=== PATIENT | female | born 1980 | race Caucasian/White ===

== ENCOUNTER 2022-01-11 13:35 | Inpatient (IN) | payer OTHER ==
[~2022-01-11] VITALS: Ht 157.5 cm; Wt 91.4 kg
[2022-01-13] VITALS (16 sets, daily range): BP systolic 114–151; BP diastolic 55–100; PULSE 57–184; TEMP 97.6–98.7
--- NOTE | 2022-01-13 14:00 | NUR ---
1400 - PATIENT AMBULATORY TO ROOM 210 ACCOMPANIED BY SPOUSE. PATIENT ORIENTED TO ROOM. PATIENT CHANGES INTO GOWN. PLAN OF CARE REVIEWED. QUESTIONS ANSWERED. 1415 - PATIENT ON MONITOR. 1430 - IV STARTED. LABS DRAWN ORDERED. LR INITIATED. 1445 - CONSENTS REVIEWED AND SIGNED. CARE ONGOING.
[2022-01-13] MEDS ORDERED: PRENATAL TABLET PO (15:10)
[2022-01-13] MEDS ORDERED: NATURAL IRON65 MG (15:11)
[2022-01-13] MEDS ORDERED: NORMODYNE100 MG PO (15:11)
[2022-01-13 15:13] LABS: BASO # 0.1 K/mm3 (0.0-0.2); BASO % 0.6 % (0.0-2.0); EOS # 0.2 K/mm3 (0.0-0.7); EOS % 1.6 % (0.0-4.0); GRAN # 8.3 K/mm3 (1.4-6.5); GRAN % 73.1 % (42.2-75.2); LYMPH # 1.9 K/mm3 (1.2-3.4); LYMPH % 16.5 % (20.0-51.0); MEAN CELL VOLUME 81 fl (80.0-100.0); MEAN CORPUSCULAR HEMOGLOBIN 25 pg (27-31); MEAN CORPUSCULAR HGB CONC 31 g/dl (33.0-37.0); MEAN PLATELET VOLUME 12.3 fl (7.4-10.4); MONO # 0.8 K/mm3 (0.1-0.6); MONO % 7.4 % (1.7-9.3); PLATELET COUNT 370 K/mm3 (130-400); REDCELL DISTRIBUTION WIDTH-CV 18.6 % (11.5-14.5)
[2022-01-13 15:16] LABS: HEMATOCRIT 32.5 % (37.0-47.0)
[2022-01-14 00:20] VITALS: BP 168/87; PULSE 82; TEMP 97.4
[2022-01-14 03:20] VITALS: BP 161/89; PULSE 83; TEMP 98.1
--- NOTE | 2022-01-14 05:45 | NUR ---
GEOFF MENESES AT THIS TIME. PT UP TO BATHROOM, PERICARE PROVIDED, PERIPAD AND MESH UNDERWEAR APPLIED. CLEAN GOWN ON, PT ASSISTED BACK TO BED. LAB IN ROOM FOR REPEAT LABWORK.
[2022-01-14 06:18] LABS: MEAN CELL VOLUME 83 fl (80.0-100.0); MEAN CORPUSCULAR HGB CONC 30 g/dl (33.0-37.0); MEAN PLATELET VOLUME 12.4 fl (7.4-10.4); PLATELET COUNT 385 K/mm3 (130-400); RED BLOOD COUNT 3.78 M/mm3 (4.10-5.30); REDCELL DISTRIBUTION WIDTH-CV 18.5 % (11.5-14.5)
[2022-01-14 06:28] LABS: HEMATOCRIT 31.5 % (37.0-47.0); HEMOGLOBIN 9.5 g/dl (12.5-16.0); MEAN CORPUSCULAR HEMOGLOBIN 25 pg (27-31)
[2022-01-14 06:36] LABS: ALBUMIN 2.4 gm/dL (3.5-5.0); BILIRUBIN,TOTAL 0.1 mg/dL (0.2-1.2); CALCIUM 9.8 mg/dL (8.4-10.2); CREATININE, serum 0.88 mg/dL (0.57-1.11); POTASSIUM 4.5 mmol/L (3.5-4.5); TOTAL PROTEIN 6.6 gm/dL (6.2-8.1)
[2022-01-14 08:15] VITALS: BP 132/109; PULSE 86; TEMP 97.9
--- NOTE | 2022-01-14 09:52 | NUR ---
Initial visit; Parents thanked [employer] for offering congratulations and God's blessings for the of their son. [employer]cher thanked family for choosing [place].
[2022-01-14 12:30] VITALS: BP 127/73; PULSE 84; TEMP 98
[2022-01-14 17:15] VITALS: BP 139/90; PULSE 73; TEMP 97.8
[2022-01-14 20:00] VITALS: BP 167/105; PULSE 76; TEMP 97.6
[2022-01-15 00:40] VITALS: BP 108/63
[2022-01-15] MEDS ORDERED: PERCOCET 325 MG1 TA2 PO (08:05)
[2022-01-15] MEDS ORDERED: PROCARDIA XL 3030 MG PO (08:05)
[2022-01-15] MEDS ORDERED: IBU800 M1 PO (08:05)
[2022-01-15 09:04] VITALS: BP 149/89; PULSE 74; TEMP 97.4
== END 2022-01-15 13:15 | disposition home or self-care (01) | DRG 787 ==
LOC: LDR → OB 01-13 13:53 → LDR 01-13 14:51 → OB 01-13 16:36
PROVIDERS: ADMIT Student in an Organized Health Care Education/Training Program
PROC: 10D00Z1 Extraction of Products of Conception, Low, Open Approach (ICD-10-PCS; principal; 2022-01-13)
DX: O24.420 Gestational diabetes mellitus in childbirth, diet controlled (principal); O10.92 Unspecified pre-existing hypertension complicating childbirth; O99.344 Other mental disorders complicating childbirth; F41.9 Anxiety disorder, unspecified; O99.02 Anemia complicating childbirth; D64.9 Anemia, unspecified; O99.284 Endocrine, nutritional and metabolic diseases complicating childbirth; E28.2 Polycystic ovarian syndrome; O99.214 Obesity complicating childbirth; Z37.0 Single live birth; Z3A.37 37 weeks gestation of pregnancy
CPT/HCPCS: J0690; J1100; J1885; J2405; J2590; J7120